=== PATIENT | male | born 1975 | race Caucasian/White ===

== ENCOUNTER 2022-10-25 06:01 | Emergency (ER) | payer OTHER, SELFPAY ==
[2022-10-25 06:05] VITALS: BP 162/95; PULSE 102; RESP 18; TEMP 36.8; O2SAT 96; BMI 30.8
[2022-10-25 08:08] LABS: MANUAL DIFF FLAG NO
[2022-10-25 08:10] LABS: Basophils Percent Auto 0.5 % (0-2); Eosinophils Absolute Auto 0.2 X10*3/uL (0.0-0.4); Eosinophils Percent Auto 2.2 % (0-4); Hematocrit 46.5 % (42.0-52.0); Hemoglobin 15.4 g/dl (14.0-18.0); Imm Gran Abs Auto 0.03 X10*3/uL (0.00-0.03); Imm Gran Pct Auto 0.3 % (0.0-0.4); Lymphocytes Absolute Auto 2.2 X10*3/uL (1.2-4.9); Lymphocytes Percent Auto 24.9 % (20-40); Mean Corpuscular HGB Conc 33.1 g/dl (31.0-36.0); Mean Corpuscular Hemoglobin 28.5 pg (27.0-33.0); Mean Corpuscular Volume 86.1 fL (80.0-98.0); Mean Platelet Volume 9.2 fL (9.4-12.4); Monocytes Absolute Auto 1.3 X10*3/uL (0.1-1.2); Monocytes Percent Auto 15.3 % (2-11); Neutrophils Absolute Auto 4.9 x10*3/uL (2.0-8.3); Neutrophils Percent Auto 56.8 % (45-73); Platelet Count 243 X10*3/uL (160-400); White Blood Count 8.7 X10*3/uL (4.8-10.8)
[2022-10-25 08:22] LABS: Alanine Aminotransferase 28 U/L (0-40); Albumin Level 4.1 g/dL (3.5-5.0); Alkaline Phosphatase 69 U/L (39-117); Anion Gap 16 (12-20); Aspartate Amino Transferase 20 U/L (5-37); Bilirubin Total 0.4 mg/dL (0.0-1.0); Blood Urea Nitrogen 14 mg/dL (9-16); Calcium 9.6 mg/dL (8.4-10.2); Carbon Dioxide 26 mmol/L (22-29); Chloride 101 mmol/L (96-108); Creatinine Clr Calc Pharmacy 132.6; Estimated Glomerular Filt Rate > 60; Glucose Random 102 mg/dL (60-115); Potassium 3.9 mmol/L (3.3-5.1); Sodium 139 mmol/L (135-145); Total Protein 7.5 g/dL (6.5-8.0)
[2022-10-25 08:50] VITALS: BP 152/90; PULSE 98; RESP 18; TEMP 36.3; O2SAT 97
--- NOTE | 2022-10-25 09:01 | ED_ITS ---
HPI - Skin/Abscess/Foreign Bdy General Chief complaint: Skin/Abscess/Foreign Body Stated complaint: abscess in mouth Time Seen by Provider: 10/25/22 08:58 Source: patient and RN notes reviewed Mode of arrival: ambulatory Limitations: no limitations History of Present Illness HPI narrative: This is a 47-year-old male, with history of epilepsy, presenting to the emergency department for evaluation of right sided facial redness, swelling and pain x 5 days. He states that over this past week he has noticed an area the right side of his chin which he thought initially was an ingrown hair. He thought that there was pus inside therefore he tried squeezing this area which has provided him without any relief. He states that the area has become increasingly in size and pain. He reports some numbness and tingling up into his right child. He denies any difficulty swallowing, difficulty breathing, or any difficulty opening and closing his mouth. He endorses some chills 2 nights ago, otherwise no other documented fevers. No other complaints or concerns at this time. MD complaint: abscess/boil Onset (ago): day(s) Location: face Quality: aching Pain Consistency: constant Relieving factors: none Exacerbating factors: none Context: none Associated symptoms: chills Treatments prior to arrival: attempted to drain pus at home Related Data Previous Rx's Medication Instructions Recorded cephalexin 500 mg capsule 500 mg PO QID 7 days #28 caps 10/25/22 doxycycline hyclate 100 mg capsule 100 mg PO BID 7 days #14 caps 10/25/22 Allergies Allergy/AdvReac Type Severity Reaction Status Date / Time No Known Allergies Allergy Verified 10/25/22 06:15 Review of Systems Review of Systems: Yes all other systems are reviewed and are negative Constitutional: Constitutional: Reports as per HPI [facility] Past Medical History Attestation statement: The following information was validated with the patient. Social History Social History Advance Directives: No Advance Directives Information Provided: No Physical Exam Vital Signs: Vital Signs: Last Vital Signs Temp 97.4 F 10/25/22 08:50 Pulse 98 10/25/22 08:50 Resp 18 10/25/22 08:50 BP 152/90 H 10/25/22 08:50 Pulse Ox 97 10/25/22 08:50 O2 Del Method Room Air 10/25/22 08:50 BMI result Body Mass Index 30.8 Const: General: cooperative, comfortable and no acute distress Orientatio n/consciousness: patient oriented x3 Limitations: no limitations HEENT: Head: Yes normal to inspection, Yes normocephalic and Yes atraumatic Ears: hearing grossly normal bilaterally General nose exam: Normal external nose present Face and sinus: Yes normal facial exam Mouth: Normal oral and palatal mucosa present, oropharynx normal and moist mucous membranes Throat: Yes posterior oropharynx normal Eyes: General: appearance normal, both eyes and all related structures Eyelids: Yes eyelids normal Conjunctivae: conjunctivae normal Sclerae: sclerae normal Pupils: Equal, round and reactive pupils present EOM: EOMs intact bilaterally Neck: Neck: Yes normal visual inspection, Yes full ROM and Yes no lymphadenopathy Lymphatic: no lymphadenopathy noted Chest: Chest palpation & inspection: normal inspection of the chest Resp: Effort & Inspection: normal respiratory effort and able to speak in complete sentences Auscultation: clear to auscultation bilaterally, no crackles, no rales, no rhonchi and no wheezes Cardio: Rate: regular rate Rhythm: regular rhythm Heart sounds: S1 normal heart sound present and S2 normal heart sound present GI: Inspection: Yes normal to inspection Skin: Other: Right chin with 3cm circular crusted eschar with surrounding erythema and induration. No fluctuance. Some drainage expressed from center. No submandibular edema. Does not extend into the cheek, or gingival space. General skin exam: no rashes or lesions noted Trauma: no lacerations or abrasions Wounds: no wounds Neuro: General: patient oriented x3 and moves all extremities Cranial nerves: Yes Equal, round and reactive pupils present Extrem: General: Yes normal to inspection Right upper extremity: normal to inspection Left upper extremity: normal to inspection Right lower extremity: normal to inspection Left lower extremity: normal to inspection Medical Decision Making Medical Decision Making MDM Narrative: 47-year-old male presenting to the emergency department for evaluation of right- sided chin abscess x5 days. Patient endorsing some chills, otherwise no fevers. Vital signs revealing mildly hypertensive 152/90, otherwise all other vital signs within normal limits. Labs without any signs of leukocytosis, H&H stable, electrolytes within normal limits. Symptoms consistent with cellulitis versus e bárbara abscess. Area does not extend into the submental or submandibular space to suggest Lucien's angina. Patient has no difficulty swallowing, breathing, or opening and closing his job. He has no cervical lymphadenopathy. Will treat with dual coverage doxycycline and Keflex. Educated to apply warm compresses multiple times a day. Given return precautions if any new or worsening symptoms occur. Patient understands and agrees with plan. Patient stable for discharge. Differential Diagnosis Differential Diagnoses: The differential diagnosis associated with the presentation includes Cellulitis, abscess, sebaceous cysts, Lucien's angina-un likely Admission/Observation Consideration of admission/observation: Escalation of care including admission/observation considered Escalation of care including admission was considered given cellulitis however given workup and physical presentation, patient can be treated outpatient with close follow-up Lab Data MDM Lab Attestation statement: I reviewed the patient's lab results. See above 10/25/22 08:04 10/25/22 08:04 Labs: Lab Results 10/25/22 10/25/22 Range/Units 08:04 08:04 WBC 8.7 (4.8-10.8) X10*3/uL RBC 5.40 (4.60-5.80) X10*6/uL Hgb 15.4 (14.0-18.0) g/dl Hct 46.5 (42.0-52.0) % MCV 86.1 (80.0-98.0) fL MCH 28.5 (27.0-33.0) pg MCHC 33.1 (31.0-36.0) g/dl RDW 12.0 (11.0-16.0) % Plt Count 243 (160-400) X10*3/uL MPV 9.2 L (9.4-12.4) fL Immature Gran % (Auto) 0.3 (0.0-0.4) % Neut % (Auto) 56.8 (45-73) % Lymph % (Auto) 24.9 (20-40) % [facility] [place] [facility] % (Auto) 15.3 H (2-11) % Eos % (Auto) 2.2 (0-4) % Baso % (Auto) 0.5 (0-2) % Lymph # (Auto) 2.2 (1.2-4.9) X10*3/uL [facility] # (Auto) 1.3 H (0.1-1.2) X10*3/uL Eos # (Auto) 0.2 (0.0-0.4) X10*3/uL Baso # (Auto) 0.0 (0.0-0.2) X10*3/uL Abs Immat Gran (auto) 0.03 (0.00-0.03) X10*3/uL Absolute Neuts (auto) 4.9 (2.0-8.3) x10*3/uL Absolute Nucleated RBC 0.000 (0.0-0.012) X10*3/uL Nucleated RBC % (auto) 0.0 (0.0-0.2) /100WBC Sodium 139 (135-145) mmol/L Potassium 3.9 (3.3-5.1) mmol/L Chloride 101 (96-108) mmol/L Carbon Dioxide 26 (22-29) mmol/L Anion Gap 16 (12-20) BUN 14 (9-16) mg/dL Creatinine 0.98 (0.5-1.4) mg/dL Estim Creat Clear Calc 132.6 Estimated GFR > 60 Random Glucose 102 (60-115) mg/dL Calcium 9.6 (8.4-10.2) mg/dL Total Bilirubin 0.4 (0.0-1.0) mg/dL AST 20 (5-37) U/L ALT 28 (0-40) U/L Alkaline Phosphatase 69 (39-117) U/L Total Protein 7.5 (6.5-8.0) g/dL Albumin 4.1 (3.5-5.0) g/dL Prescription Management I considered prescription management with: Antibiotic Discharge Plan Discharge Clinical Impression: Cellulitis, Abscess of skin or subcutaneous tissue Patient Disposition: Home, Self-Care Instructions: Cellulitis (ED), Warm Compress or Soak (ED) Additional Instructions: Please keep area clean and dry. Use gentle cleanser. Apply warm compresses such as the warm tea bag to the area multiple times a day at least 5 to 6 times a day to help bring infection to the surface of your skin. Take prescribed antibiotics as directed. Finish the entire course even if your feeling better. Watch for any new or worsening symptoms including but not limited to fevers, difficulty opening and closing her mouth, difficulty swallowing or difficulty breathing. If any of these occur immediately report to the emergency department. Follow-up with your primary care physician regarding this visit. Prescriptions: New cephalexin 500 mg capsule 500 mg PO QID 7 Days Qty: 28 0RF doxycycline hyclate 100 mg capsule 100 mg PO BID 7 Days Qty: 14 0RF
== END 2022-10-25 09:47 | disposition home or self-care (01) ==
PROVIDERS: Emergency Provider Emergency Medicine
DX: L02.01 Cutaneous abscess of face (principal); Z79.899 Other long term (current) drug therapy
CPT/HCPCS: 36415; 80053; 85025; 99283